=== PATIENT | male | born 2000 | race Caucasian/White ===

== ENCOUNTER 2019-01-12 18:03 | Emergency (ER) | payer OTHER ==
[2019-01-12 18:07] VITALS: BP 136/88; PULSE 81; TEMP 97.7; BMI 30.2
[2019-01-12] MEDS ORDERED: ALBUTEROL SO4 2.5/IPRATROPIUM 0.5 INH SOL 3 ML VIAL.NEB. NEB ONE (18:27)
--- NOTE | 2019-01-12 18:34 | PDOC ---
History of Present Illness - General Chief Complaint: Asthma Stated Complaint: ASTHMA/CONGESTION/WHEEZING Time Seen by Provider: 01/12/19 18:11 History Source: Patient Exam Limitations: No Limitations - History of Present Illness Initial Comments: 01/12/19 18:31 HISTORY OF PRESENT ILLNESS: 18-year-old male with past medical history of asthma (no intubations and to annual visits for asthma related concerns) who presents to emergency department for evaluation of nasal congestion and dry cough for the past 7 days. Patient denies fevers or chills but reports having intermittent wheezing. Reports his cough is nonproductive but denies any pain. No recent travel or sick contacts. PAST MEDICAL HISTORY: asthma SURGICAL HISTORY: Denies ALLERGIES: peanut REVIEW OF SYSTEMS General/Constitutional: Denies fever or chills. Denies weakness, weight change. HEENT: see HPI Cardiovascular: Denies chest pain or shortness of breath. Respiratory: Denies cough, wheezing, or hemoptysis. Gastrointestinal: Denies nausea, vomiting, diarrhea or constipation. Denies rectal bleeding. Genitourinary: Denies dysuria, frequency, or change in urination. Musculoskeletal: Denies joint or muscle swelling or pain. Denies neck or back pain. Skin and breasts: Denies rash or easy bruising. Neurologic: Denies headache, vertigo, loss of consciousness, or loss of sensation. Psychiatric: Denies depression or anxiety. Endocrine: Denies increased thirst. Denies abnormal weight change. Hematologic/Lymphatic: Denies anemia, easy bleeding, or history of blood clots. Allergic/Immunologic: Denies hives or skin allergy. Denies latex allergy. PHYSICAL EXAM General Appearance: Well-appearing, appropriately dressed. No apparent distress , no intoxication. HEENT: EOMI, PERRLA, normal ENT inspection, normal voice, TMs normal, pharynx normal. No conjunctival pallor. No photophobia, scleral icterus. Nasal congestion present. No sinus tenderness upon palpation to maxillary or frontal sinuses. Neck: Supple. Trachea midline. No tenderness, rigidity, carotid bruit, stridor , lymphadenopathy, or thyromegaly. Respiratory/Chest: Speaking full sentences. Lungs CTAB. No shortness of breath , chest tenderness, respiratory distress, accessory muscle use. No crackles, rales, rhonchi, stridor, wheezing, dullness Cardiovascular: RRR. S1, S2. No JVD, murmur, bradycardia, tachycardia. Vascular Pulses: Dorsalis-Pedis (R): 2+, Dorsalis-Pedis (L): 2+ Neurologic: herbologist II-XII intact. Fully oriented, alert. Appropriate mood/affect. Motor strength 5/5. No appreciable EOM palsy, facial droop or sensory deficit. 01/12/19 18:34 Is this a multiple visit Asthma Patient?: No Past History - Past Medical History Allergies/Adverse Reactions: Allergies Allergy/AdvReac Type Severity Reaction Status Date / Time peanut [Peanut] Allergy Mild Hives Verified 01/12/19 18:07 Home Medications: Ambulatory Orders Diphenhydramine [Benadryl] 50 mg PO QID #14 tablet 04/11/11 predniSONE [Deltasone -] 40 mg PO DAILY #4 tablet 04/11/11 Benzonatate [Tessalon Pearls -] 200 mg PO TID #42 cap 01/12/19 Asthma: Yes COPD: No HTN: Yes - Immunization History Immunization Up to Date: Yes - Psycho Social/Smoking Cessation Hx Smoking Status: No Smoking History: Never smoked Number of Cigarettes Smoked Daily: 0 Cigars Per Day: 0 Hx Alcohol Use: Yes Drug/Substance Use Hx: No *Physical Exam - Vital Signs Last Vital Signs Temp Pulse Resp BP Pulse Ox 97.7 F 81 16 136/88 96 01/12/19 18:05 01/12/19 18:05 01/12/19 18:05 01/12/19 18:05 01/12/19 18:05 Medical Decision Making - Medical Decision Making 01/12/19 18:36 A/P: 18-year-old male with nasal congestion and dry cough for 1 week Nebulizer treatment Discharge home with prescription for Tessalon Perles instructed to follow-up with his primary doctor for any worsening symptoms. I discussed the physical exam findings, ancillary test results and final diagnoses with the patient. I answered all of the patient's questions. The patient was satisfied with the care received and felt comfortable with the discharge plan and treatment plan. The patient will call their primary care physician within 24 hours to arrange follow-up and will return to the Emergency Department with any new, persistent or worsening symptoms. Discharge - Discharge Information Problems reviewed: Yes Clinical Impression/Diagnosis: Acute nasopharyngitis (common cold) Condition: Fair Disposition: HOME - Admission No - Additional Discharge Information Prescriptions: Benzonatate [Tessalon Pearls -] 200 mg PO TID #42 cap - Follow up/Referral Referrals: Nadya Hernandez MD [Primary Care Provider] - - Patient Discharge Instructions Additional Instructions: Rest, drink lots of fluids: Teas, water, soups, Pedialyte Saltwater gargles Steamy showers/seem to face break up mucus Avoid contact with others until fevers and cough resolved Lots of handwashing and good hygiene Continue [id number] medications for symptomatic relief Tylenol or Motrin for fever and pain Followup with private physician in one to 2 days as needed Return to emergency department for worsened symptoms, fevers, dehydration - Post Discharge Activity Work/Back to School Note: Back to Work, Back to School
== END 2019-01-12 19:08 | disposition home or self-care (01) ==
LOC: JERFT 18:03
PROC: 3E0F7GC Introduction of Other Therapeutic Substance into Respiratory Tract, Via Natural or Artificial Opening (ICD-10-PCS; principal; 2019-01-12)
DX: J00 Acute nasopharyngitis [common cold] (principal); Z91.010 Allergy to peanuts; I10 Essential (primary) hypertension; J45.909 Unspecified asthma, uncomplicated
CPT/HCPCS: 99281-25

== ENCOUNTER 2021-10-14 19:12 | Emergency (ER) | payer OTHER ==
[2021-10-14 19:39] VITALS: TEMP 98.4; BMI 34.5
[2021-10-14] MEDS ORDERED: ACETAMINOPHEN 500 MG TABLET (FP) PO ONE (23:10)
[2021-10-14] MEDS ORDERED: ACETAMINOPHEN 500 MG TABLET (FP) ONE (23:27)
[2021-10-15 00:22] VITALS: BP 151/100; PULSE 84
== END 2021-10-15 00:22 | disposition home or self-care (01) ==
LOC: JER 19:12
DX: I10 Essential (primary) hypertension (principal); Z20.822 Contact with and (suspected) exposure to COVID-19
CPT/HCPCS: 93005; 93010; 99284-25; C9803-CS; U0003; U0005